=== PATIENT | male | born 1935 | race Caucasian/White ===

== ENCOUNTER 2019-05-06 11:43 | Inpatient (IN) | payer MEDICARE, OTHER ==
[~2019-05-06] VITALS: Ht 152.4 cm; Wt 72.6 kg
[2019-05-06] VITALS (21 sets, daily range): BP systolic 90–129; BP diastolic 25–101
[2019-05-06] MEDS ORDERED: IPRATROPIUM BROMIDE 0.5 MG/2.5 ML NEBU ONE (11:56)
[2019-05-06] MEDS ORDERED: ALBUTEROL SULFATE 2.5 MG/3 ML NEBU ONE (11:56)
[2019-05-06] MEDS ORDERED: ALBUTEROL SULFATE 2.5 MG/ 0.5 ML NEBU ONE (11:56)
[2019-05-06] MEDS ORDERED: PIPERACILLIN SODIUM/TAZOBACTAM 3.375 G in IV DEXTROSE 5% 50 ML IV ONE (12:00)
[2019-05-06] MEDS ORDERED: VANCOMYCIN IV 1,000 MG in IV DEXTROSE 5% 250 ML IV ONE (12:00)
[2019-05-06] MEDS ORDERED: IV NORMAL SALINE 1000 ML BAG IV ONE (12:00)
[2019-05-06] MEDS ORDERED: IPRATROPIUM BROMIDE 0.5 MG/2.5 ML NEBU NEB ONE (12:00)
[2019-05-06] MEDS ORDERED: ALBUTEROL SULFATE 2.5 MG/3 ML NEBU NEB ONE (12:00)
[2019-05-06 12:05] LABS: BASOPHILS % (AUTO) 0.2 % (0.0-2.0); HEMATOCRIT 45.5 % (36.7-47.1); HEMOGLOBIN 14.9 g/dL (12.5-16.3); LYMPHOCYTES # (AUTO) 0.4 K/uL (20.0-40.0); LYMPHOCYTES % (AUTO) 2.7 % (20.5-51.5); MEAN CORPUSCULAR HEMOGLOBIN 33.7 uug (23.8-33.4); MEAN CORPUSCULAR HGB CONC 33 g/dL (32.5-36.3); MEAN CORPUSCULAR VOLUME 102.8 fL (73.0-96.2); MONOCYTES # (AUTO) 0.7 K/uL (2.0-10.0); MONOCYTES % (AUTO) 4.9 % (0.0-11.0); NEUTROPHILS # (AUTO) 13.3 K/uL (1.8-8.9); NEUTROPHILS % (AUTO) 92.2 % (38.5-71.5); PLATELET COUNT (AUTO) 177 K/uL (152-348); RED BLOOD CELL COUNT(AUTO) 4.43 MIL/uL (4.06-5.63); WHITE BLOOD COUNT (AUTO) 14.4 K/uL (3.6-10.2)
[2019-05-06 12:15] LABS: CARBON DIOXIDE 24 mmol/L (21-32); CHLORIDE 101 mmol/L (98-107); CREATININE 1.7 mg/dL (0.6-1.3); GLUCOSE 167 mg/dL (74-106); POTASSIUM 5.1 mmol/L (3.5-5.1); UREA NITROGEN, BLOOD 58 mg/dL (7-18)
[2019-05-06] MEDS ORDERED: PIPERACILLIN/TAZOBACTAM/D5W 50 ML IV ONE (12:23)
--- NOTE | 2019-05-06 12:27 | NUR ---
PT IS A/OX4, BIB RA100, FROM [facility], C/O SOB. PER EXPLOSIVE OPERATOR'S REPORT, PT'S SPO2 HAS BEEN DESATURATING SINCE YESTERDAY INTO THE 80'S. PT ARRIVED ON HIGH-FLOW O2 15 LPM VIA NRB. SPO2 AT 77 UPON ARRIVAL, BP WNL, TACHYCARDIC AT 140.
[2019-05-06 12:28] LABS: ALANINE AMINOTRANSFERASE 52 U/L (16-63); ALKALINE PHOSPHATASE 181 U/L (50-136); ASPARTATE AMINOTRANSFERASE 23 U/L (15-37); BILIRUBIN,DIRECT 0.3 mg/dL (0.0-0.2); BILIRUBIN,TOTAL 0.7 mg/dL (0.2-1.0); TOTAL PROTEIN, SERUM 6.2 g/dL (6.4-8.2)
[2019-05-06 12:28] LABS: *BILIRUBIN,URIN NEGATIVE (NEGATIVE); *BLOOD, URINE 3+ (NEGATIVE); *CLARITY,URINE TURBID (CLEAR); *COLOR,URINE PINK (YELLOW); *KETONES,URINE NEGATIVE (NEGATIVE); *UROBILINOGEN,URINE 0.2 E.U./dl (NORMAL); LEUKOCYTE ESTERASE ,URINE 3+ (NEGATIVE); NITRITE, URINE NEGATIVE (NEGATIVE); UGLUCOSE NEGATIVE (NEGATIVE)
[2019-05-06 12:29] LABS: BACTERIA,URINE FEW /HPF (NONE SEEN); RBC,URINE TNTC /HPF (0-3); SQUAMOUS EPITHELIAL CELL,UR FEW /HPF (NONE SEEN); URINE AMORPHOUS URATE MANY /HPF
[2019-05-06] MEDS ORDERED: MULT-213 PO (12:33)
[2019-05-06] MEDS ORDERED: NA P133E RC (12:33)
[2019-05-06] MEDS ORDERED: ALBU2.5V38 NEB (12:33)
[2019-05-06] MEDS ORDERED: MELA5TAB PO (12:33)
[2019-05-06] MEDS ORDERED: ACYC200C PO (12:33)
[2019-05-06] MEDS ORDERED: ACYC400T PO (12:33)
[2019-05-06] MEDS ORDERED: ASCO500T10 PO (12:33)
[2019-05-06] MEDS ORDERED: ACET1TAB12 PO (12:33)
[2019-05-06] MEDS ORDERED: BISA10SU61 RC (12:33)
[2019-05-06] MEDS ORDERED: SIMV-46 PO (12:33)
[2019-05-06] MEDS ORDERED: LANS15CA18 PO (12:33)
[2019-05-06] MEDS ORDERED: MAGN400O6 PO (12:33)
[2019-05-06] MEDS ORDERED: MONT10TA25 PO (12:33)
[2019-05-06] MEDS ORDERED: LIDO30AD10 TD (12:33)
[2019-05-06] MEDS ORDERED: HYDR-4384 PO (12:33)
[2019-05-06] MEDS ORDERED: BENZ1LOZ58 MM (12:33)
[2019-05-06] MEDS ORDERED: DOCU50CA13 PO (12:33)
[2019-05-06] MEDS ORDERED: METO25TA6 PO (12:33)
[2019-05-06] MEDS ORDERED: ACET-2154 PO (12:33)
[2019-05-06] MEDS ORDERED: LIDO113G4 TP (12:33)
[2019-05-06] MEDS ORDERED: VANCOMYCIN IV 200 ML ONE (12:37)
--- NOTE | 2019-05-06 12:47 | NUR ---
PAGED DR. BROOKE MENG FOR ER DR RICHARDS. AWAITING CALLBACK.
[2019-05-06] MEDS ORDERED: METOPROLOL TARTRATE 5 MG/5 ML VIAL IVP ONE ×2 (13:00)
[2019-05-06] MEDS ORDERED: ENOXAPARIN SODIUM 80 MG/0.8 ML DISP.SYRIN SQ ONE ×2 (13:00)
[2019-05-06 13:21] LABS: ABG BASE EXCESS -7.4 mmol/L; ABG HCO3 17.4 mmol/L; ABG PCO2 33.5 mmHg (35.0-45.0); ABG PH 7.334 (7.350-7.450); ABG PO2 88.4 mmHg (75.0-100.0); ABG SITE RIGHT RADIAL; ABG TOTAL HEMOGLOBIN 14.5 G/dL (13.5-18.0); COHb 1.3 % (0.5-1.5); MetHb 0.1 % (0.0-1.5); O2Hb 94.7 % (94.0-97.0); VENT MODE CONT NEB TX
[2019-05-06] MEDS ORDERED: IOHEXOL 350 100 ML INFUS..BTL ONE (13:33)
[2019-05-06] MEDS ORDERED: IV NORMAL SALINE 250 ML IV ONE (13:33)
[2019-05-06] MEDS ORDERED: SWABABLE VALVE TRANSFER SET EA MC ONE (13:33)
--- NOTE | 2019-05-06 13:56 | NUR ---
LUNA on the line with Dr. Zuniga
--- NOTE | 2019-05-06 14:01 | NUR ---
Per Dr. Zuniga, he requests that we call [facility] nephro for admission. Dr. Grace paged, awaiting call back.
--- NOTE | 2019-05-06 14:36 | NUR ---
PT PLACED ON BIPAP PER ER MD ORDER, BIPAP SETTING IPAP 10, EPAP 5, RR 18.
[2019-05-06] MEDS ORDERED: NOREPINEPHRINE BITARTRATE 8 MG in IV DEXTROSE 5% 500 ML IV ONE (15:30)
--- NOTE | 2019-05-06 15:35 | NUR ---
Dr. Savannah Taylor paged, awaiting call back.
--- NOTE | 2019-05-06 15:39 | NUR ---
TRIPLE LUMEN CENTRAL LINE ESTABLISHED IN L FEMORAL VEIN BY RAHAT MCLEOD.
--- NOTE | 2019-05-06 16:00 | NUR ---
ER SPEAKING W/ DR. ROSE RE PT'S ADMISSION.
--- NOTE | 2019-05-06 16:07 | NUR ---
CALL TO [facility] FOR ADMISSION UNDER Nael JACKSON NP. PENDING CALL BACK
--- NOTE | 2019-05-06 16:30 | NUR ---
Nael New, STEAM FITTER HELPER at bedside.
--- NOTE | 2019-05-06 16:31 | NUR ---
LEVOPHED INFUSION AT 25 MCG/MIN.
--- NOTE | 2019-05-06 16:42 | NUR ---
Eusebio Davila, Nursing Otolaryngology Surgeon, called anesthesiologist. Pending Dr. Elena will for intubation
--- NOTE | 2019-05-06 16:53 | NUR ---
ADMITTING REPORT GIVEN TO ALISA CERON.
--- NOTE | 2019-05-06 16:53 | NUR ---
Pt. admitted to CCU3, under care of Virgen VANEGAS. Belongs List completed
--- NOTE | 2019-05-06 17:19 | NUR ---
Colorer Consultation requested for primary support group. SEDA met with patient's Celina, who was tearful but receptive to meeting with this SW. Celina stated that patient was transferred to [place] ED today due to low oxygen levels. Patient is an 84 year old male. SW is unable to gather any personal/medical history from the patient. Patient's Celina provided medical history on the patient, stating that he was currently at [facility] for rehab. Patient does not have any children. Celina stated that patient has one sister who lives in [place] and that the sister is aware of patient's condition and current location due to Celina being on speaker phone with the patient's sister during her meeting with the doctor earlier. SW allowed time for Celina to express her thoughts and feelings, SW provided supportive counseling. Celina was tearful throughout the entire interview. Celina stated that she and patient's sister have agreed for patient's code status to be DNR/DNI. JIE Sterling came in to see Celina while SEDA was meeting with Celina, and reviewed patient's code status again. Celina once again expressed the code status to be DNR/DNI, and Celina signed patient's POLST. Celina requested a insurance verify rep from a [employer] restoration. SEDA asked Celina if there was a specific restoration that Celina would like for SEDA to contact, and Celina stated that any local [employer] restoration was fine. SEDA contacted [facility]' [phone] (option 3) and left a voicemail message on their 24 hour urgent voicemail message, asking for a insurance verify rep to visit the patient per family's request. SW included the hospital's phone number and the unit that the patient is in. SEDA then informed patient's Celina that SW left a voicemail message at [facility], and Celina expressed gratitude. SEDA also informed CCU JIE Kern and Automotive Paint Technician Giovanni about the family's request for a insurance verify rep and that SW has left a voicemail message at [facility].
[2019-05-06] MEDS ORDERED: ONDANSETRON 4 MG/2 ML VIAL IV PRN (17:30)
[2019-05-06] MEDS ORDERED: Z GUARD REMEDY PASTE 57 GM TUBE TOP PRN (17:30)
[2019-05-06] MEDS ORDERED: ZOLPIDEM 5 MG TABLET PO PRN (17:30)
[2019-05-06] MEDS ORDERED: MORPHINE SULFATE 2 MG/1 ML DISP.SYRIN IV PRN (17:30)
[2019-05-06] MEDS ORDERED: NOREPINEPHRINE BITARTRATE 8 MG in IV DEXTROSE 5% 500 ML IV PRN (17:30)
[2019-05-06] MEDS ORDERED: PHENYLEPHRINE IV 20 MG in IV DEXTROSE 5% 250 ML IV PRN ×2 (17:30→18:15)
[2019-05-06] MEDS ORDERED: HYDROCODONE/APAP 5-325MG TABLET PO PRN (17:30)
[2019-05-06] MEDS ORDERED: METOPROLOL TARTRATE 5 MG/5 ML VIAL IVP PRN (17:30)
[2019-05-06] MEDS ORDERED: MAGNESIUM HYDROXIDE 30 ML LIQUID UDC PO PRN (17:30)
[2019-05-06] MEDS ORDERED: ACETAMINOPHEN 325 MG TABLET PO PRN (17:30)
[2019-05-06] MEDS ORDERED: ASPIRIN 300 MG RECTAL SUPP RC ONE (17:45)
[2019-05-06] MEDS ORDERED: HEPARIN/D5W DRIP 500 ML IV PRN (17:45)
[2019-05-06 17:46] LABS: ABG BASE EXCESS -9.5 mmol/L; ABG HCO3 17.5 mmol/L; ABG PCO2 41.8 mmHg (35.0-45.0); ABG PH 7.239 (7.350-7.450); ABG PO2 225.3 mmHg (75.0-100.0); ABG SITE LEFT RADIAL; ABG TOTAL HEMOGLOBIN 13.8 G/dL (13.5-18.0); MetHb 0.1 % (0.0-1.5); O2Hb 98.7 % (94.0-97.0); VENT MODE BIPAP; VT, ABG 745 mL
--- NOTE | 2019-05-06 18:12 | NUR ---
Patient in from ER. BIPAP /, Rate 16, FIO2 100% . patient opening eyes to light pain and repositioning only. vitals of: HR of 152, 117/70 and 92% on 100% fIO2. rectal temp of 97.6. patient situated in bed, redness to sacral area noted, procedures pending will be endorse to incoming rn.
--- NOTE | 2019-05-06 18:14 | NUR ---
PHARMACY CLINICAL NOTES (VANCOMYCIN DOSING) S: 84 YO male with DX of DVT, LE edema, sepsis, UTI, and acute respiratory failure per ER MD's note. MD ordered zosyn and Vancomycin. O: BUN/SCR 58/1.7; WBC 14.4, T 98.3, DOSING WT 66 KG, T 04/23 28.8 A/P: PT has received Vancomycin 1000 mg in ER @ 1300(dose #1). Will continue with regimen: Vancomycin 1 gm IVPB q34h; estimated peak of 38 and trough of 17. Next dose on 05/07 @ 2300. Will order a level prior to 3rd dose on 05/09 ~0900. RX will follow renal fxn and levels and will adjust the dose as necessary.
[2019-05-06] MEDS: IV D5 1/2 NS 1000 ML 1,000 ML IV PRN (18:51)
[2019-05-06] MEDS ORDERED: DILTIAZEM HCL 25 MG IV IV ONE (19:15)
[2019-05-06] MEDS: DILTIAZEM HCL IV 125 MG in IV NORMAL SALINE 100 ML IV PRN (19:49)
[2019-05-06] MEDS: Z GUARD REMEDY PASTE 57 GM TUBE TOP SCH (20:04)
[2019-05-06] MEDS ORDERED: SIMVASTATIN 20 MG TABLET PO SCH (21:00)
[2019-05-06] MEDS: PIPERACILLIN SODIUM/TAZOBACTAM 3.375 G in IV DEXTROSE 5% 50 ML IV SCH (21:29)
[2019-05-06] MEDS: NOREPINEPHRINE BITARTRATE 8 MG in IV DEXTROSE 5% 500 ML IV PRN (23:05)
[2019-05-07] VITALS (95 sets, daily range): BP systolic 46–164; BP diastolic 16–129
[2019-05-07] MEDS ORDERED: PHENYLEPHRINE 10 MG/1 ML VIAL ONE (00:57)
--- NOTE | 2019-05-07 01:30 | NUR ---
Unable to obtain ABG after multiple attempts. RN ISSA made aware and notified. SpO2-100% at this time.
--- NOTE | 2019-05-07 01:57 | NUR ---
Did not start Neosynephrine.
[2019-05-07] MEDS: PIPERACILLIN SODIUM/TAZOBACTAM 3.375 G in IV DEXTROSE 5% 50 ML IV SCH ×3 (05:06→21:28)
[2019-05-07 05:13] LABS: BASOPHILS % (AUTO) 0.1 % (0.0-2.0); HEMOGLOBIN 13.6 g/dL (12.5-16.3); LYMPHOCYTES # (AUTO) 0.2 K/uL (20.0-40.0); LYMPHOCYTES % (AUTO) 1.5 % (20.5-51.5); MEAN CORPUSCULAR HEMOGLOBIN 33.5 uug (23.8-33.4); MEAN CORPUSCULAR HGB CONC 33 g/dL (32.5-36.3); MEAN CORPUSCULAR VOLUME 100.5 fL (73.0-96.2); MONOCYTES # (AUTO) 0.7 K/uL (2.0-10.0); MONOCYTES % (AUTO) 4.5 % (0.0-11.0); NEUTROPHILS # (AUTO) 14.3 K/uL (1.8-8.9); NEUTROPHILS % (AUTO) 93.9 % (38.5-71.5); PLATELET COUNT (AUTO) 176 K/uL (152-348); RED BLOOD CELL COUNT(AUTO) 4.08 MIL/uL (4.06-5.63); WHITE BLOOD COUNT (AUTO) 15.2 K/uL (3.6-10.2)
[2019-05-07 05:37] LABS: ALANINE AMINOTRANSFERASE 56 U/L (16-63); ALKALINE PHOSPHATASE 163 U/L (50-136); ASPARTATE AMINOTRANSFERASE 19 U/L (15-37); BILIRUBIN,TOTAL 0.6 mg/dL (0.2-1.0); CARBON DIOXIDE 27 mmol/L (21-32); CHLORIDE 101 mmol/L (98-107); CHOLESTEROL 126 mg/dL (<200); CREATININE 1.9 mg/dL (0.6-1.3); GLUCOSE 263 mg/dL (74-106); HDL CHOLESTEROL 30 mg/dL (40-60); MAGNESIUM 2.1 mg/dL (1.8-2.4); PHOSPHOROUS 5.7 mg/dL (2.5-4.9); POTASSIUM 4.7 mmol/L (3.5-5.1); THYROID STIMULATING HORMONE 1.552 mIU/mL (0.358-3.740); TOTAL PROTEIN, SERUM 5.2 g/dL (6.4-8.2); TRIGLYCERIDES 134 MG/DL (30-150); UREA NITROGEN, BLOOD 59 mg/dL (7-18)
[2019-05-07] MEDS ORDERED: PANTOPRAZOLE SODIUM 40 MG TABLET.DR PO SCH (07:00)
[2019-05-07] MEDS: DILTIAZEM HCL IV 125 MG in IV NORMAL SALINE 100 ML IV PRN (07:43)
--- NOTE | 2019-05-07 07:46 | NUR ---
Receive patient on BIPAP 03/26 rate of 18, 100%FIO2. levophed running at 15mc/min. sbp in the low 60's 80's.
[2019-05-07] MEDS: NOREPINEPHRINE BITARTRATE 8 MG in IV DEXTROSE 5% 500 ML IV PRN ×4 (08:03→18:48)
[2019-05-07] MEDS: PANTOPRAZOLE SODIUM 40 MG VIAL IV SCH (08:11)
[2019-05-07] MEDS: MONTELUKAST SODIUM 10 MG TABLET PO SCH (08:11)
[2019-05-07] MEDS: Z GUARD REMEDY PASTE 57 GM TUBE TOP SCH ×2 (08:12→20:44)
[2019-05-07] MEDS: IV D5 1/2 NS 1000 ML 1,000 ML IV PRN ×2 (08:26→21:53)
--- NOTE | 2019-05-07 10:25 | NUR ---
Nephrology services, Dr. Mcelroy in to see patient, report given. No new orders received.
--- NOTE | 2019-05-07 10:26 | NUR ---
Pulmonary consult Dr. Moran in the unit to see and examine patient, full report given. see order hx.
[2019-05-07] MEDS ORDERED: VANCOMYCIN IV 1,000 MG in IV DEXTROSE 5% 250 ML IV ONE (11:00)
--- NOTE | 2019-05-07 11:20 | NUR ---
ID services, Dr. Peterson in the unit to see and examine pt. report given orders to continue with care plan received.
--- NOTE | 2019-05-07 11:32 | NUR ---
PHARMACY CLINICAL NOTES (VANCOMYCIN DOSING) S: 84 YO male with DX of DVT, LE edema, sepsis, UTI, and acute respiratory failure per ER MD's note. MD ordered zosyn and Vancomycin. O: BUN/SCR 59/1.9 (yesterday 1.7); WBC 15.2, T 97.7, DOSING WT 66 KG, T 1/ 28.8 Random from today's am lab: 10.8 A/P: Since pt's renal function has worsened, stopped scheduled regimen and will dose per level for now. Per today's vanco random from am labs, dosed another 1gm vanco for today at 1100. Next vanco random level ordered with am labs tomorrow am. Will check when available and redose as needed. Will follow
--- NOTE | 2019-05-07 11:48 | NUR ---
Cardiology services, Dr. Mitchell in the unit to see and examine patient. Orders to stop cardizem drip received and implemented.
[2019-05-07] MEDS: OSELTAMIVIR PHOSPHATE 75 MG CAPSULE PO SCH ×2 (13:30→20:43)
--- NOTE | 2019-05-07 14:30 | NUR ---
A call to Dr. Peterson to notify that pt is unable to take po meds. no means to insert NG tube. Addendum: 05/07/19 at 1630 by CHANA ARELLANO RN Spoke with . no new orders received.
[2019-05-07] MEDS: ENOXAPARIN SODIUM 80 MG/0.8 ML DISP.SYRIN SQ SCH (14:59)
[2019-05-07] MEDS ORDERED: ENOXAPARIN SODIUM 60 MG/0.6 ML DISP.SYRIN SQ SCH (15:00)
--- NOTE | 2019-05-07 19:14 | NUR ---
PT RECEIVED ON BIPAP WITH SETTINGS OF 12/5, RATE OF 18, FIO2 100%. PT APPEARS TO BE TOLERATING BIPAP SETTINGS AT THIS TIME. BIPAP ALARM PARAMETERS CHECKED, ARE ON AND AUDIBLE. WILL ATTEMPT TO TITRATE FIO2 IF ABLE. WILL CONTINUE TO MONITOR THROUGHOUT SHIFT.
--- NOTE | 2019-05-07 19:15 | NUR ---
rounds made patient in bed , lethargic no spontaneous eye opening doesn't follow commands withdraws to pain only.upper and lower extremities flaccid .no s/s/ of pain no facial grimace extremities relax .on bipap (Ipap 12/Epap 5 fio2 100 % ) tolerating bipap saturation 100 rr 17.kept npo as endorsed unable to placed ngt ,aspiration precaution observed .hob up .levophed drip in progress to keep sbp >90 mm/hg and v/s monitoring done q 15 minutes . f/cc to bsd.
--- NOTE | 2019-05-07 20:00 | NUR ---
patient Celina at bedside updated with patient status and condition . informed about medication and v/s and bipap purposes .
--- NOTE | 2019-05-07 21:00 | NUR ---
due antibiotic given and scan medication . turned and reposition patient offloaded back with pillow and upper and lower extremities elevated with pillows .
[2019-05-07] MEDS ORDERED: VANCOMYCIN IV 1,000 MG in IV DEXTROSE 5% 250 ML IV SCH (23:00)
[2019-05-08] VITALS (92 sets, daily range): BP systolic 83–125; BP diastolic 36–82
[2019-05-08] MEDS: NOREPINEPHRINE BITARTRATE 8 MG in IV DEXTROSE 5% 500 ML IV PRN ×4 (00:19→22:08)
[2019-05-08 05:12] LABS: BASOPHILS % (AUTO) 0.1 % (0.0-2.0); HEMATOCRIT 38.7 % (36.7-47.1); LYMPHOCYTES # (AUTO) 0.4 K/uL (20.0-40.0); LYMPHOCYTES % (AUTO) 2.6 % (20.5-51.5); MEAN CORPUSCULAR HEMOGLOBIN 33.4 uug (23.8-33.4); MEAN CORPUSCULAR HGB CONC 34 g/dL (32.5-36.3); MEAN CORPUSCULAR VOLUME 99.3 fL (73.0-96.2); MONOCYTES # (AUTO) 0.8 K/uL (2.0-10.0); NEUTROPHILS # (AUTO) 14.5 K/uL (1.8-8.9); NEUTROPHILS % (AUTO) 92.3 % (38.5-71.5); PLATELET COUNT (AUTO) 164 K/uL (152-348); WHITE BLOOD COUNT (AUTO) 15.7 K/uL (3.6-10.2)
[2019-05-08] MEDS: PIPERACILLIN SODIUM/TAZOBACTAM 3.375 G in IV DEXTROSE 5% 50 ML IV SCH ×3 (05:19→21:49)
[2019-05-08 05:20] LABS: ALANINE AMINOTRANSFERASE 48 U/L (16-63); ALKALINE PHOSPHATASE 133 U/L (50-136); ASPARTATE AMINOTRANSFERASE 19 U/L (15-37); BILIRUBIN,TOTAL 0.7 mg/dL (0.2-1.0); CARBON DIOXIDE 24 mmol/L (21-32); CHLORIDE 96 mmol/L (98-107); CREATININE 1.7 mg/dL (0.6-1.3); GLUCOSE 190 mg/dL (74-106); PHOSPHOROUS 4.8 mg/dL (2.5-4.9); TOTAL PROTEIN, SERUM 5.1 g/dL (6.4-8.2); UREA NITROGEN, BLOOD 50 mg/dL (7-18); VANCOMYCIN,RANDOM 15.2 ug/mL (18.0-26.0)
--- NOTE | 2019-05-08 07:40 | NUR ---
PHARMACY CLINICAL NOTES (VANCOMYCIN DOSING) S: 84 YO male with DX of DVT, LE edema, sepsis, UTI, and acute respiratory failure MD ordered zosyn and Vancomycin. O: BUN/SCR 50/1.7 WBC 15.2, T 97.6, DOSING WT 66 KG, Random from today's am lab: 15.2 A/P: Since pt's renal function is still unstable, will continue to dose per level for now. Per today's vanco random from am labs, dosed another 1gm vanco for today at 0900. Next vanco random level ordered with am labs tomorrow am. Will check when available and redose as needed. Will follow
--- NOTE | 2019-05-08 08:00 | NUR ---
DOCTOR DONNELL IN THE UNIT TO SEE PATIENT. CANCELED AMIODARONE DRIP DUE TO CONVERSION BACK TO SR.
[2019-05-08] MEDS ORDERED: AMIODARONE HCL IV 150 MG in IV DEXTROSE 5% 100 ML IV ONE (08:45)
[2019-05-08] MEDS ORDERED: AMIODARONE HCL IV 900 MG in IV DEXTROSE 5% 482 ML IV PRN (08:45)
[2019-05-08] MEDS: OSELTAMIVIR PHOSPHATE 75 MG CAPSULE PO SCH ×2 (09:00→20:32)
[2019-05-08] MEDS ORDERED: VANCOMYCIN IV 1,000 MG in IV DEXTROSE 5% 250 ML IV ONE (09:00)
[2019-05-08] MEDS: MONTELUKAST SODIUM 10 MG TABLET PO SCH (09:00)
[2019-05-08] MEDS: PANTOPRAZOLE SODIUM 40 MG VIAL IV SCH (09:47)
[2019-05-08] MEDS: Z GUARD REMEDY PASTE 57 GM TUBE TOP SCH ×2 (09:48→20:32)
[2019-05-08] MEDS: ENOXAPARIN SODIUM 80 MG/0.8 ML DISP.SYRIN SQ SCH (10:03)
--- NOTE | 2019-05-08 10:04 | NUR ---
DOCTOR JERARDO IN THE UNIT WAS INFORMED OF CRITICAL ABG RESULTS AND PATIENT CONTINUES TO BE DNR/DNI. NEW ORDERS IN THE SYSTEM AND BIPAP CHANGES AND HELD LOVENOX PENDING ARRANGEMENT OF THORACENTESIS.
--- NOTE | 2019-05-08 11:00 | NUR ---
RT PER MD AND ABG RESULTS BIPAP CHANGES MADE AT THIS TIME. IPAP 15 EPAP 5 RATE 18 FIO2 100%. PT DNR/ DNI PT REMAINS ON 100% PT WAS ORAL SUCTION BY RT AND RN. WILL CONTINUE TO MONITOR PT ALARMS ON AND AUDIBLE.
[2019-05-08] MEDS: IV D5 1/2 NS 1000 ML 1,000 ML IV PRN (11:28)
--- NOTE | 2019-05-08 14:53 | NUR ---
WOUND CARE CONSULT: PT PRESENTS WITH SACRAL INTACT DEEP TISSUE INJURY, GENERALIZED EDEMA AND LEFT ELBOW DRY ABRASION, PRESENT ON ADMISSION. FEET NOTED TO HAVE DUSKY COLOR. PT ON BIPAP AT THIS TIME. RECOMMENDATIONS MADE FOR SKIN PROTECTION AND WOUND CARE. DISCUSSED WITH NURSING STAFF. WILL SEE PRN. MCLEOD IN AGREEMENT WITH PLAN OF CARE. PT ON FIRST STEP [facility]. Addendum: 05/08/19 at 1455 by DIANDRA PATEL RN Amended: Links added.
--- NOTE | 2019-05-08 18:12 | NUR ---
RT NO CHANGES MADE AT THIS TIMER PT TOLERATING BIPAP AND REMAINS ON 100% . PT WAS ORAL SUCTION BY RT AND RN WILL CONTINUE TO MONITOR PT.
--- NOTE | 2019-05-08 20:00 | NUR ---
95.4 F via rectally temperature low .Jaret huggers place and temperature set at moderate heat ,placed extra blanket .hob up .
--- NOTE | 2019-05-08 20:30 | NUR ---
patients at bedside plated with patient condition and v/s . Addendum: 05/09/19 at 0728 by KEKE CADE RN UPDATED
--- NOTE | 2019-05-08 22:00 | NUR ---
patient had a bm soft moderate in amt . changed soiled linens and gown skin care done applied z guard to sacral area and bilateral groin . oral care done .
--- NOTE | 2019-05-08 23:00 | NUR ---
continue with pressors and titrated as needed to keep sbp >90 mm/hg .
[2019-05-09] VITALS (88 sets, daily range): BP systolic 72–129; BP diastolic 23–81
[2019-05-09] MEDS: IV D5 1/2 NS 1000 ML 1,000 ML IV PRN ×2 (01:05→17:51)
--- NOTE | 2019-05-09 05:30 | NUR ---
removed Jaret dior temp 99. F RECTALLY .
[2019-05-09 05:46] LABS: BASOPHILS % (AUTO) 0.1 % (0.0-2.0); HEMATOCRIT 37.3 % (36.7-47.1); HEMOGLOBIN 12.4 g/dL (12.5-16.3); LYMPHOCYTES # (AUTO) 0.2 K/uL (20.0-40.0); LYMPHOCYTES % (AUTO) 1.3 % (20.5-51.5); MEAN CORPUSCULAR HEMOGLOBIN 32.7 uug (23.8-33.4); MEAN CORPUSCULAR HGB CONC 33 g/dL (32.5-36.3); MEAN CORPUSCULAR VOLUME 98.8 fL (73.0-96.2); MONOCYTES # (AUTO) 0.8 K/uL (2.0-10.0); MONOCYTES % (AUTO) 4.7 % (0.0-11.0); NEUTROPHILS # (AUTO) 15.6 K/uL (1.8-8.9); NEUTROPHILS % (AUTO) 93.9 % (38.5-71.5); PLATELET COUNT (AUTO) 141 K/uL (152-348); RED BLOOD CELL COUNT(AUTO) 3.78 MIL/uL (4.06-5.63); WHITE BLOOD COUNT (AUTO) 16.6 K/uL (3.6-10.2)
[2019-05-09 05:53] LABS: CARBON DIOXIDE 22 mmol/L (21-32); CHLORIDE 96 mmol/L (98-107); CREATININE 1.9 mg/dL (0.6-1.3); GLUCOSE 112 mg/dL (74-106); MAGNESIUM 1.9 mg/dL (1.8-2.4); PHOSPHOROUS 4.2 mg/dL (2.5-4.9); POTASSIUM 4.3 mmol/L (3.5-5.1); UREA NITROGEN, BLOOD 48 mg/dL (7-18)
--- NOTE | 2019-05-09 05:58 | NUR ---
PT HAS BEEN ON CONT BI/PAP FULL MASK; WITH SAME CURRENT SETTINGS, 15/5, RR 20 100%, ADJUST MASK, ORAL CARE DONE, SUCTIONED BLOODY TINGE SECRETIONS, AMBU BAG AT BEDSIDE.Corbin FRANKLINP Addendum: 05/09/19 at 0600 by KATHY MARTINEZ RT Amended: Links added.
--- NOTE | 2019-05-09 06:00 | NUR ---
send stool for ob.
[2019-05-09] MEDS: PIPERACILLIN SODIUM/TAZOBACTAM 3.375 G in IV DEXTROSE 5% 50 ML IV SCH (06:08)
[2019-05-09] MEDS: MONTELUKAST SODIUM 10 MG TABLET PO SCH (08:58)
[2019-05-09] MEDS: OSELTAMIVIR PHOSPHATE 75 MG CAPSULE PO SCH ×2 (08:59→21:00)
--- NOTE | 2019-05-09 09:00 | NUR ---
Temitope VANEGAS in the unit to see patient.
--- NOTE | 2019-05-09 09:30 | NUR ---
RUBI VANEGAS IN THE UNIT TO SEE PATIENT. ORDERS PLACED IN COMPUTER.
[2019-05-09] MEDS: PANTOPRAZOLE SODIUM 40 MG VIAL IV SCH (09:36)
[2019-05-09] MEDS: Z GUARD REMEDY PASTE 57 GM TUBE TOP SCH ×2 (09:37→21:00)
[2019-05-09 09:58] LABS: *OCCULT BLOOD STOOL POSITIVE (NEGATIVE)
[2019-05-09] MEDS: NOREPINEPHRINE BITARTRATE 8 MG in IV DEXTROSE 5% 500 ML IV PRN ×2 (11:47→23:11)
--- NOTE | 2019-05-09 12:00 | NUR ---
DOCTOR MARROQUIN IN THE UNIT. ORDERS PLACED IN THE SYSTEM
[2019-05-09 12:27] LABS: ABG BASE EXCESS -11.3 mmol/L; ABG HCO3 19.3 mmol/L; ABG PCO2 65.1 mmHg (35.0-45.0); ABG PO2 75.3 mmHg (75.0-100.0); ABG SITE RIGHT RADIAL; ABG TOTAL HEMOGLOBIN 13.8 G/dL (13.5-18.0); COHb 1.2 % (0.5-1.5); MetHb 0.3 % (0.0-1.5); O2Hb 92.3 % (94.0-97.0); VENT MODE BIPAP
[2019-05-09 12:31] LABS: ABG BASE EXCESS -9.2 mmol/L; ABG HCO3 18.5 mmol/L; ABG PCO2 47.4 mmHg (35.0-45.0); ABG PH 7.209 (7.350-7.450); ABG PO2 57.8 mmHg (75.0-100.0); ABG SITE RIGHT RADIAL; ABG TOTAL HEMOGLOBIN 12.7 G/dL (13.5-18.0); COHb 1.2 % (0.5-1.5); MetHb 0.3 % (0.0-1.5); O2Hb 90.2 % (94.0-97.0); VENT MODE BIPAP
[2019-05-09] MEDS: ACETYLCYSTEINE 10% 4ML VIAL NEB SCH ×3 (12:45→23:30)
[2019-05-09] MEDS ORDERED: CEFTRIAXONE 1 G VIAL IM SCH (14:00)
[2019-05-09] MEDS: ALBUTEROL SULFATE 1.25 MG/3 ML NEBU NEB PRN ×2 (15:33→21:24)
--- NOTE | 2019-05-09 16:30 | NUR ---
DOCTOR NATE IN THE UNIT TO SEE PATIENT. SPOKE TO THE REGARDING STATUS.
[2019-05-09] MEDS: CEFTRIAXONE 1 G in IV DEXTROSE 5% 50 ML IV SCH (17:28)
--- NOTE | 2019-05-09 18:30 | NUR ---
CALLED RADIOLOGY TO UPDATE REGARDING THORACENTESIS. US TECH CALLED PER RADIOLOGY STILL PENDING RADIOLOGIST TO ORDER THORACENTISIS TO BE DONE OR CANCELED. ONCE READ INFORMED DEPARTMENT TO CALL THE UNIT FOR UPDATE. LOVENOX CONTINUES TO BE ON HOLD WILL INFORM PRIMARY FOR CONTINUATION OF MEDICATION OR HOLD.
--- NOTE | 2019-05-09 18:50 | NUR ---
DOCTOR GETACHEW INFORMED OF US RESULTS. RESUMED LOVENOX. CALLED PHARMACY TO RESUME
--- NOTE | 2019-05-09 19:15 | NUR ---
received patient on bipap 25/5 20 fio2 100 % , levophed at 10 mcg , iv d51/2 ns at 75 ml , bilateral rxtremities , swollen and weeping , nails are bluish , right lower leg nails are bluish , pulses weak on all extremities , crackles through out , suctioned patient moderate amount of secretions thru oral suctioning , big hump on the back , no ngt as doctor is aware of hard insertion , cental line on the left femora intact
--- NOTE | 2019-05-09 20:09 | NUR ---
dr patel is here to see patient given an update on patient's condition
--- NOTE | 2019-05-09 20:34 | NUR ---
* Maintains blood gasses WNL * Evidences usual mental status * Exhibits usual skin color Addendum: 05/09/192033 by TRAVIS RICE RN Amended: Meg added. Addendum: 05/09/192033 by TRAVIS RICE RN Amended: Meg added.
--- NOTE | 2019-05-09 20:34 | NUR ---
* Exhibits granulation/healing at site * Exhibits decreased drainage at site * Exhibits no s/s of infection * Exhibits a decrease in lesion size * Maintains nutritional status Addendum: 05/09/19 at 2033 by TRAVIS RICE RN Amended: Links added.
[2019-05-09] MEDS: ENOXAPARIN SODIUM 80 MG/0.8 ML DISP.SYRIN SQ SCH (21:20)
[2019-05-09] MEDS: IPRATROPIUM BROMIDE 0.5 MG/2.5 ML NEBU NEB PRN (21:24)
--- NOTE | 2019-05-09 22:06 | NUR ---
* Evidences no purulent drainage from wounds, incisions, and tubes * Maintains optimal lab values * Achieves hemodynamic stability * Exhibits no adventitious breath sounds * Discusses measures to prevent aspiration * Maintains normal breath can levophed titrating and being monitored Addendum: 05/09/19 at 2207 by TRAVIS RICE RN Amended: Links added.
[2019-05-10] VITALS (86 sets, daily range): BP systolic 82–131; BP diastolic 21–90
--- NOTE | 2019-05-10 00:07 | NUR ---
PT ON CONT BI/PAP WITH FULL MASK, REPOSITION MASK, PT ON 100%, CPT TOLL FAIR TO ANTERIOR LOBES, NEB INLINE WITH MUCOMYST WITH ALBUTEROL/ ATROVENT TOLL WELL, PT STILL ON FIO2 100%, SUCTION MOUTH SLIGHT BLOODY TINGE SECRETIONS, HARD TO GET SEAL ON MASK. Corbin MARTINEZ RCP Addendum: 05/10/19 at 0014 by KATHY MARTINEZ RT Amended: Links added.
[2019-05-10 05:32] LABS: BASOPHILS % (AUTO) 0.1 % (0.0-2.0); HEMATOCRIT 40.2 % (36.7-47.1); HEMOGLOBIN 13.3 g/dL (12.5-16.3); LYMPHOCYTES # (AUTO) 0.3 K/uL (20.0-40.0); MEAN CORPUSCULAR HEMOGLOBIN 32.7 uug (23.8-33.4); MEAN CORPUSCULAR HGB CONC 33 g/dL (32.5-36.3); MEAN CORPUSCULAR VOLUME 99.2 fL (73.0-96.2); MONOCYTES # (AUTO) 0.4 K/uL (2.0-10.0); MONOCYTES % (AUTO) 2.8 % (0.0-11.0); NEUTROPHILS # (AUTO) 15.1 K/uL (1.8-8.9); NEUTROPHILS % (AUTO) 95.1 % (38.5-71.5); PLATELET COUNT (AUTO) 123 K/uL (152-348); RED BLOOD CELL COUNT(AUTO) 4.05 MIL/uL (4.06-5.63); WHITE BLOOD COUNT (AUTO) 15.9 K/uL (3.6-10.2)
[2019-05-10 05:43] LABS: ALANINE AMINOTRANSFERASE 36 U/L (16-63); ALKALINE PHOSPHATASE 137 U/L (50-136); ASPARTATE AMINOTRANSFERASE 19 U/L (15-37); BILIRUBIN,TOTAL 0.5 mg/dL (0.2-1.0); CARBON DIOXIDE 22 mmol/L (21-32); CHLORIDE 93 mmol/L (98-107); CREATININE 2.1 mg/dL (0.6-1.3); GLUCOSE 123 mg/dL (74-106); MAGNESIUM 1.9 mg/dL (1.8-2.4); PHOSPHOROUS 4.3 mg/dL (2.5-4.9); POTASSIUM 4.2 mmol/L (3.5-5.1); TOTAL PROTEIN, SERUM 4.9 g/dL (6.4-8.2); UREA NITROGEN, BLOOD 48 mg/dL (7-18)
--- NOTE | 2019-05-10 06:06 | NUR ---
dr pandey was called in to notify of sustaining heart rate on 130's, wating for call back
--- NOTE | 2019-05-10 06:15 | NUR ---
dr pandey called back received order ,
--- NOTE | 2019-05-10 07:45 | NUR ---
Pulmonary services, DR. Brooks in the unit to see and examine patient, full report given, orders to continue with care plan received and to call with ABG results received. AT 0830 informed of ABG results as ordered. and orders given to RT Everett via phone. AT 0837 BIPAP setting changed to Ipap of 30, Epapa 5, rate 26, and fio2 100% with follow up ABG May 11 at 0800.
[2019-05-10] MEDS: ACETYLCYSTEINE 10% 4ML VIAL NEB SCH ×3 (08:01→23:31)
[2019-05-10] MEDS: ALBUTEROL SULFATE 1.25 MG/3 ML NEBU NEB PRN ×3 (08:01→23:32)
--- NOTE | 2019-05-10 08:37 | NUR ---
RT IPAP INCEREASED TO 3O, RR INCREASED TO 26,PER MD ORDER. RN AWARE
[2019-05-10] MEDS: PANTOPRAZOLE SODIUM 40 MG VIAL IV SCH (08:46)
[2019-05-10] MEDS: Z GUARD REMEDY PASTE 57 GM TUBE TOP SCH ×2 (08:46→21:25)
[2019-05-10] MEDS: MONTELUKAST SODIUM 10 MG TABLET PO SCH (08:47)
[2019-05-10] MEDS: OSELTAMIVIR PHOSPHATE 75 MG CAPSULE PO SCH ×2 (08:47→21:24)
[2019-05-10] MEDS: IV D5/ 0.9% NACL 1,000 ML IV PRN ×2 (08:59→21:39)
[2019-05-10] MEDS: NOREPINEPHRINE BITARTRATE 8 MG in IV DEXTROSE 5% 500 ML IV PRN ×3 (11:07→19:06)
--- NOTE | 2019-05-10 12:58 | NUR ---
Cardiology services, Dr. Hutchinson in the unit to see and examine patient, report given. At this time updated and discussed care plan with pt's who remains at bedside.
[2019-05-10] MEDS: CEFTRIAXONE 1 G in IV DEXTROSE 5% 50 ML IV SCH (17:58)
--- NOTE | 2019-05-10 19:30 | NUR ---
RECEIVED PATIENT ON BIPAP AT 100 % , AROUSABLE , EYES ARE SLUGGISH , LEVOPHED AT 17 MCG , IV D5 NS AT 75ML / CENTRAL LINE LEFT GROIN PATENT AND INTACT
--- NOTE | 2019-05-10 19:35 | NUR ---
dr patel called , received order to insert ngt
--- NOTE | 2019-05-10 20:00 | NUR ---
DR VITALE CALLED AND ORDERED TO INSERT NGT IF SUCCESSFUL AND BIPAP SETTINGS CHANGES
--- NOTE | 2019-05-10 20:00 | NUR ---
JORDYN , RT NOTIFIED OF GENNARO BIPAP SETTINGS
--- NOTE | 2019-05-10 20:18 | NUR ---
ngt inserted , and secured , cxr done to verify placement
--- NOTE | 2019-05-10 20:32 | NUR ---
* Maintains blood gasses WNL * Evidences usual mental status * Exhibits usual skin color Addendum: 05/10/19 at 2032 by TRAVIS RICE RN Amended: Meg added. Addendum: 05/10/19 at 2053 by TRAVIS RICE RN Amended: Meg added.
--- NOTE | 2019-05-10 20:33 | NUR ---
* Maintains optimal lab values * Achieves hemodynamic stability * Exhibits no adventitious breath sounds * Discusses measures to prevent aspiration * Maintains normal breath sounds * Maintains hydration status patient is on levophed and being monitored Addendum: 05/10/19 at 2032 by TRAVIS RICE RN Amended: Links added. Addendum: 05/10/19 at 2053 by TRAVIS RICE RN Amended: Meg le.
--- NOTE | 2019-05-10 20:34 | NUR ---
Discusses measures to prevent aspiration * Maintains normal breath sounds * Maintains normal WBC * Maintains vital signs WNL Addendum: 05/10/19 at 2053 by TRAVIS RICE RN Amended: Links added.
--- NOTE | 2019-05-10 20:45 | NUR ---
radiologist called to verify placement of ngt
--- NOTE | 2019-05-10 21:00 | NUR ---
dr patel called back , red results of xr for ngt placement , received order to start feeding
[2019-05-10] MEDS ORDERED: METOCLOPRAMIDE HCL 10 MG/2 ML VIAL IV ONE (21:15)
[2019-05-10] MEDS: ENOXAPARIN SODIUM 80 MG/0.8 ML DISP.SYRIN SQ SCH (21:24)
[2019-05-10] MEDS: METOCLOPRAMIDE HCL 10 MG/2 ML VIAL IV SCH (21:39)
--- NOTE | 2019-05-10 21:43 | NUR ---
PT ON CONT BI/PAP WITH SETTINGS, 20/5 PSV 15, RR26 , 100% ,ADJUST MASK, HARD TO GET READING ON PULSE OXY AT TIMES, REPOSITION MASK, NEB INLINE, CPT TO LEFT LUNG ANTERIOR POSITION, SUCTION MOUTH ORAL CARE DONE, PINKSIH TINGE SECRETIONS, SHRUTHI, PT IS SEMI COHERENT.Corbin MARTINEZ NUTRITION SERVICES WORKER Addendum: 05/10/19 at 2146 by KATHY MARTINEZ RT Amended: Links added.
[2019-05-10] MEDS: IPRATROPIUM BROMIDE 0.5 MG/2.5 ML NEBU NEB PRN (23:32)
[2019-05-11] VITALS (29 sets, daily range): BP systolic 0–120; BP diastolic 0–69
[2019-05-11] MEDS: NOREPINEPHRINE BITARTRATE 8 MG in IV DEXTROSE 5% 500 ML IV PRN ×3 (02:42→09:47)
--- NOTE | 2019-05-11 05:00 | NUR ---
DR RESENDIZ WAS CALLED IN ABOUT CHANGE OF MENTAL STATUS , UNRESPONSIVE AND BLOOD PRESSURE IS ON CRITICAL LOW DESPITE HAVING LEVOPHED AT 40 MCG
--- NOTE | 2019-05-11 05:15 | NUR ---
DR RESENDIZ CALLLED BACK AND GIVEN AN UPDATE ON PATIEN'TS CONDITION RECEIVED AN ORDER TO START NEOSYNEPRINE
[2019-05-11] MEDS: PHENYLEPHRINE IV 80 MG in IV DEXTROSE 5% 250 ML IV PRN ×2 (05:30→09:47)
[2019-05-11] MEDS: METOCLOPRAMIDE HCL 10 MG/2 ML VIAL IV SCH (05:36)
--- NOTE | 2019-05-11 05:48 | NUR ---
WAS CALLED AND NOTIFIED OF CHANGE OF CHANGE OF CONDITON
--- NOTE | 2019-05-11 06:00 | NUR ---
LAB UNABLE TO DRAW BLOOD , DOCTOR AWARE
--- NOTE | 2019-05-11 06:00 | NUR ---
REYNA WAS CALLED TO NOTIFY OF CRITICAL LOW BLOOD PRESSURE DESPITE ADDITIONAL NEOSYNEPHRINE DRIP ON MAXIMUM DOSE RATE ADMINISTRATION
[2019-05-11] MEDS ORDERED: DOPamine IV DRIP 400 MG/250ML 250 ML IV PRN ×3 (06:30→07:00)
--- NOTE | 2019-05-11 06:30 | NUR ---
DR VITALE CALLED BACK AND GAVE NEW ORDERS
[2019-05-11] MEDS ORDERED: DOPamine IV DRIP 400 MG/250ML 250 ML ONE (06:36)
[2019-05-11] MEDS ORDERED: CEFEPIME HCL 1 G in IV DEXTROSE 5% 50 ML IV STA (06:37)
[2019-05-11] MEDS ORDERED: VANCOMYCIN IV 1,000 MG in IV DEXTROSE 5% 250 ML IV STA (06:45)
[2019-05-11] MEDS ORDERED: CEFEPIME HCL 1 G in IV DEXTROSE 5% 50 ML IV SCH (07:00)
[2019-05-11] MEDS: OSELTAMIVIR PHOSPHATE 75 MG CAPSULE PO SCH (07:52)
[2019-05-11] MEDS: MONTELUKAST SODIUM 10 MG TABLET PO SCH (07:52)
[2019-05-11] MEDS: Z GUARD REMEDY PASTE 57 GM TUBE TOP SCH (07:53)
[2019-05-11] MEDS: ALBUTEROL SULFATE 1.25 MG/3 ML NEBU NEB PRN (08:00)
[2019-05-11] MEDS: ACETYLCYSTEINE 10% 4ML VIAL NEB SCH (08:00)
[2019-05-11] MEDS: PANTOPRAZOLE SODIUM 40 MG VIAL IV SCH (08:00)
[2019-05-11 08:17] LABS: CARBON DIOXIDE 16 mmol/L (21-32); CHLORIDE 93 mmol/L (98-107); CREATININE 2.8 mg/dL (0.6-1.3); PHOSPHOROUS 6.2 mg/dL (2.5-4.9); POTASSIUM 4.4 mmol/L (3.5-5.1); UREA NITROGEN, BLOOD 50 mg/dL (7-18)
[2019-05-11 08:20] LABS: GLUCOSE 386 mg/dL (74-106)
[2019-05-11 08:24] LABS: BASOPHILS # (AUTO) 0.2 K/uL (0.0-8.0); HEMATOCRIT 38.1 % (36.7-47.1); HEMOGLOBIN 12.3 g/dL (12.5-16.3); LYMPHOCYTES # (AUTO) 0.2 K/uL (20.0-40.0); LYMPHOCYTES % (AUTO) 1.3 % (20.5-51.5); MEAN CORPUSCULAR HEMOGLOBIN 33.3 uug (23.8-33.4); MEAN CORPUSCULAR HGB CONC 32 g/dL (32.5-36.3); MEAN CORPUSCULAR VOLUME 103.3 fL (73.0-96.2); MONOCYTES # (AUTO) 0.3 K/uL (2.0-10.0); MONOCYTES % (AUTO) 1.6 % (0.0-11.0); NEUTROPHILS % (AUTO) 96.1 % (38.5-71.5); PLATELET COUNT (AUTO) 118 K/uL (152-348); RED BLOOD CELL COUNT(AUTO) 3.68 MIL/uL (4.06-5.63); WHITE BLOOD COUNT (AUTO) 15.6 K/uL (3.6-10.2)
--- NOTE | 2019-05-11 08:45 | NUR ---
Dr. Mitchell here to see pt. Full report given. spoke with . No new orders received.
--- NOTE | 2019-05-11 09:00 | NUR ---
Spoke with Dr. Castillo on the telephone regarding pt's continuously low blood pressure. New orders received and carried out.
[2019-05-11] MEDS ORDERED: IV NORMAL SALINE 500 ML IV ONE (09:15)
[2019-05-11] MEDS ORDERED: MORPHINE SULFATE 2 MG/1 ML DISP.SYRIN IV PRN (09:15)
[2019-05-11 10:35] LABS: BAND % (MANUAL) 6 % (0-10); LYMPHOCYTES % (MANUAL) 2 % (20-40); MONOCYTES % (MANUAL) 1 % (2-10); NEUTROPHILS % (MANUAL) 91 % (42-75)
--- NOTE | 2019-05-11 10:35 | NUR ---
Dr. Verasg here at the bedside and spoke with . No new orders received.
[2019-05-11] MEDS ORDERED: MEROPENEM 500 MG in IV NORMAL SALINE 50 ML IV SCH (12:00)
--- NOTE | 2019-05-11 12:20 | NUR ---
Pt and pronounced by RN and Cementer Machine Applicator. Pt's pupils fixed, dilated, and unresponsive to light or accommodation. Apical and carotid pulse ausculated and palpated for 1 minute. No pulse present. No respirations. Pt DNR/DNI. and friend at the bedside. called and made aware. [facility] called and order received to release body to mortuary. Addendum: 05/11/19 at 1352 by AIMEE SCHAEFFER RN *Pt apneic for 5 minutes. No audible heart tones, breath sounds for 1 minute. No corneal reflexes. Addendum: 05/11/19 at 1404 by AIMEE SCHAEFFER RN [facility] Case #: [id number]
--- NOTE | 2019-05-11 14:53 | NUR ---
[facility] called . Executive Vice President Of Sales to be here in a couple hours for pick up attendant.
--- NOTE | 2019-05-11 16:10 | NUR ---
SEDA met with patient's Celina, to check in on her after the passing of the patient, and to provide supportive and grief counseling. Celina was in the patient's ICU room, along with a family friend. Celina was waiting for [facility] to arrive in order to transport patient's remains, however was receptive to meeting with this SW. Celina expressed gratitude to this SW for checking in on her, and expressed gratitude towards all the doctors and nurses that were so kind and supportive during the patient's hospitalization. SW expressed appreciation to Celina for her kind words. SW then checked in with Celina to see how she was feeling with the passing of the patient. SW allowed time for Celina to express her thoughts and feelings. At times, Celina became tearful as she processed her feelings, but also expressed being content with the fact that the patient was now resting, and that he was no longer in any pain or discomfort. SW validated Celina's feelings, provided her with supportive and grief counseling. Celina reminisced about some recent happy memories from the last few months. SW allowed time for Celina to talk about these memories, and provided education on the stages of grief and how memories can support the grieving process. Celina was very receptive and once again expressed gratitude. SEDA offered some resources on grief counseling, but Celina stated that she will reach out to this SW if she feels the need. Celina stated that her brother and patient's sister, who both live out of state, will be flying in soon, and that she felt they would both be great sources of support for her. SEDA expressed agreement and understanding. Celina asked SW for SW's phone number, just in case Celina wanted to reach out for information/resources in the future, and SEDA provided Celina with the phone number.
--- NOTE | 2019-05-11 16:10 | NUR ---
Pt left the unit with [facility]. F/C and PICC line removed. Services aware that pt had the flu (influenza A). Mask provided for protection.
[2019-05-11 16:45] LABS: ABG BASE EXCESS -8.6 mmol/L; ABG HCO3 19.5 mmol/L; ABG PCO2 50.7 mmHg (35.0-45.0); ABG PH 7.203 (7.350-7.450); ABG PO2 78.7 mmHg (75.0-100.0); ABG SITE RIGHT RADIAL; ABG TOTAL HEMOGLOBIN 13.5 G/dL (13.5-18.0); COHb 1.1 % (0.5-1.5); MetHb 0.1 % (0.0-1.5); O2Hb 94.2 % (94.0-97.0); VENT MODE BIPAP
[2019-05-11 16:45] LABS: ABG BASE EXCESS -17.7 mmol/L; ABG HCO3 17.2 mmol/L; ABG PCO2 97.6 mmHg (35.0-45.0); ABG PH 6.864 (7.350-7.450); ABG PO2 43.5 mmHg (75.0-100.0); ABG SITE RIGHT RADIAL; ABG TOTAL HEMOGLOBIN 12.9 G/dL (13.5-18.0); COHb 0.9 % (0.5-1.5); MetHb 0.4 % (0.0-1.5); VENT MODE BIPAP
[2019-05-12] MEDS ORDERED: PANTOPRAZOLE ORAL SUSPENSION 40 MG SUSPDR.PKT GT SCH (09:00)
== END 2019-05-11 16:20 | disposition expired | DRG 871 ==
LOC: ER 11:45 → CCU 17:04
PROVIDERS: ADMIT Nurse Practitioner Acute Care; ATTEND Nurse Practitioner Acute Care
PROC: 06HY33Z Insertion of Infusion Device into Lower Vein, Percutaneous Approach (ICD-10-PCS; principal; 2019-05-06)
PROC: 5A09457 Assistance with Respiratory Ventilation, 24-96 Consecutive Hours, Continuous Positive Airway Pressure (ICD-10-PCS; 2019-05-06)
PROC: 5A09457 Assistance with Respiratory Ventilation, 24-96 Consecutive Hours, Continuous Positive Airway Pressure (ICD-10-PCS; 2019-05-08)
DX: A41.89 Other specified sepsis (principal); G92 Toxic encephalopathy; J69.0 Pneumonitis due to inhalation of food and vomit; J96.01 Acute respiratory failure with hypoxia; N17.0 Acute kidney failure with tubular necrosis; J09.X1 Influenza due to identified novel influenza A virus with pneumonia; R65.21 Severe sepsis with septic shock; I21.A1 Myocardial infarction type 2; J96.02 Acute respiratory failure with hypercapnia; Z66 Do not resuscitate; E43 Unspecified severe protein-calorie malnutrition; I50.31 Acute diastolic (congestive) heart failure; I82.411 Acute embolism and thrombosis of right femoral vein; C90.00 Multiple myeloma not having achieved remission; N39.0 Urinary tract infection, site not specified; E87.1 Hypo-osmolality and hyponatremia; E87.2 Acidosis; D68.59 Other primary thrombophilia; I13.0 Hypertensive heart and chronic kidney disease with heart failure and stage 1 through stage 4 chronic kidney disease, or unspecified chronic kidney disease; J98.11 Atelectasis; I48.92 Unspecified atrial flutter; K21.9 Gastro-esophageal reflux disease without esophagitis; J09.X9 Influenza due to identified novel influenza A virus with other manifestations; E78.5 Hyperlipidemia, unspecified; M43.12 Spondylolisthesis, cervical region; Z74.09 Other reduced mobility; M40.294 Other kyphosis, thoracic region; N18.9 Chronic kidney disease, unspecified; N40.1 Benign prostatic hyperplasia with lower urinary tract symptoms; J44.9 Chronic obstructive pulmonary disease, unspecified; I48.91 Unspecified atrial fibrillation; Z79.899 Other long term (current) drug therapy
CPT/HCPCS: 36415; 36556; 36600; 70030-TC; 71045; 71275; 76604; 83605; 83735; 84100; 84443; 85025; 85730; 87040; 87070; 87077; 87086; 87400; 93005; 93307; 93880; 94640; 94660; A4663; C9113; G0378; J0282; J0692; J0696; J1265; J1650; J2185; J2270; J2370; J2543; J2765; J3370; J3490; J3590; J7030; J7040; J7042; J7050; J7060; Q9967